=== PATIENT | male | born 1995 | race Asian ===

== ENCOUNTER 2016-12-20 20:32 | Observation (INO) | payer OTHER ==
[~2016-12-20] VITALS: Ht 170.2 cm; Wt 25.5 kg
[2016-12-20] MEDS ORDERED: IBUP-1050 PO (20:47)
[2016-12-20] MEDS ORDERED: KETOROLAC TROMETHAMINE 30 MG/ML VIAL IV STA (20:50)
[2016-12-20] MEDS ORDERED: SODIUM CHLORIDE 0.9% 1000ML 1,000 ML IV STA (20:50)
[2016-12-20] MEDS ORDERED: ONDANSETRON INJ 2 MG/ML 2 ML VIAL IV STA (20:50)
--- NOTE | 2016-12-20 20:55 | EMERGENCY ROOM VISIT NOTE ---
History Report prepared by Dima: Luigi Blair Under the Supervision of: Dr. Oumar Wellington D.O. First contact with patient: 20:38 Chief Complaint: FEVER Stated Complaint: FEVER, NAUSEA History of Present Illness The patient is a 21 year old male who presents to the Emergency Room with complaints of a persistent fever that began Monday, four days prior to arrival. The patient states that he also developed a headache on Monday, which he is still experiencing. He also claims that he possibly ate some "bad" food on Monday and is now nauseous. He has not vomited, and his abdominal pain has resolved form Monday. He has a runny nose. The patient did take Ibuprofen at 0700 this morning. He denies any pain/stiffness in his neck. Source of History: patient Onset: Four days [employer] Position: other (Global) Quality: other (Fever) Timing: other (Persistent) Associated Symptoms: + headache, + nausea, No neck pain, No vomiting Review of Systems See HPI for pertinent positives & negatives. A total of 10 systems reviewed and were otherwise negative. Past Medical & Surgical Medical Problems: (1) Diarrhea (2) Leukocytosis Patient notes no past medical/surgical histories. Family History Cancer Diabetes mellitus Social History Smoking Status: Never Smoker Marital Status: single Housing Status: lives with roommate Occupation Status: [employer] student Current/Historical Medications Scheduled PRN Ibuprofen (Advil), 400 MG PO Q8 PRN for Pain Allergies Coded Allergies: Shellfish (Verified Allergy, Mild, ITCHING, 12/21/16) Physical Exam Vital Signs Date Time Temp Pulse Resp B/P Pulse Ox O2 Delivery O2 Flow Rate FiO2 12/21/16 02:46 68 18 98/49 96 Room Air 12/21/16 01:00 74 12/21/16 00:55 36.7 80 18 126/70 98 Room Air 12/20/16 23:19 63 18 116/62 98 Room Air 12/20/16 22:33 80 20 116/62 97 Room Air 12/20/16 21:08 84 12/20/16 20:34 36.9 86 18 136/85 96 Room Air Physical Exam GENERAL: Patient is awake, alert, and in no acute distress. Patient is resting comfortably and showing no signs of anxiety EYES: The conjunctivae are clear. The pupils are round and reactive. EARS, NOSE, MOUTH AND THROAT: The nose is without any evidence of any deformity. Mucous membranes are moist tongue is midline NECK: The neck is nontender and supple. RESPIRATORY: Normal respiratory effort is noted there is no evidence of wheezing rhonchi or rales CARDIOVASCULAR: Tachycardiac rate with normal rhythm noted there no murmurs rubs or gallops normal S1 normal S2 GASTROINTESTINAL: The abdomen is soft. Bowel sounds are present in all quadrants. Abdomen is nontender MUSCULOSKELETAL/EXTREMITIES: There is no evidence of gross deformity full range of motion is noted in the hips and shoulders SKIN: There is no obvious evidence of any rash. There are no petechiae, pallor or cyanosis noted. NEUROLOGIC: Patient is awake alert and oriented x3 strength is symmetric patellar reflexes are 2+ bilaterally Medical Decision & Procedures ER Provider Diagnostic Interpretation: X ray results and stated below per my interpretation and radiology interpretation. Other radiology results per my review and radiologist interpretation: PA CHEST RADIOGRAPH AND UPRIGHT AND SUPINE AP RADIOGRAPHS OF THE ABDOMEN CLINICAL HISTORY: Abdominal pain and fever. COMPARISON STUDY: No previous studies for comparison. FINDINGS: Lung volumes are normal. The lungs are clear. There is no pneumothorax or pleural effusion. Cardiac size is normal. Mediastinal contours are normal. There is no free air. Bowel gas pattern is normal. No calcifications are identified within the abdomen or the pelvis. IMPRESSION: 1. No free air or evidence of bowel obstruction. 2. No acute cardiopulmonary findings. Electronically signed by: Uche Chandler M.D. 12/20/2016 10:25 PM Dictated Date/Time: 12/20/2016 10:[address] the abdomen and pelvis was obtained in the emergency department. The report is reviewed. Preliminary Findings Only See Final Report For Complete Findings CT ABDOMEN & PELVIS: The liver, gallbladder, spleen, pancreas, and adrenal glands are unremarkable. Both kidneys are similar in size and enhancement. There is no hydronephrosis. Urinary bladder and prostate are unremarkable. Aorta and IVC are normal. There is no evidence of bowel obstruction. Oral contrast has reached the mid small bowel at the time of imaging. Visualized appendix is normal. There is no free fluid or free air in the abdomen or pelvis. There are no acute osseous findings. Radiologist: Kaylynn Hui M.D. Study ready at 00:52 and initial results transmitted at 01:11 Laboratory Results Test 12/20/16 21:15 12/20/16 22:35 12/20/16 22:50 12/21/16 02:00 Toxic Vacuolation OCCASIONAL Direct Bilirubin 0.1 mg/dl (0-0.2) Lipase 175 U/L (73-393) Influenza Type A Antigen Neg for Influ A (NEG) Influenza Type B Antigen Neg for Influ B (NEG) Bedside Lactic Acid Venous 1.41 mmol/L (0.90-1.70) Urine Color YELLOW Urine Appearance CLEAR (CLEAR) Urine pH 7.0 (4.5-7.5) Urine Specific [place] 1.000 (1.000-1.030) Urine Protein NEG (NEG) Urine Glucose (UA) NEG (NEG) Urine Ketones NEG (NEG) Urine Occult Blood NEG (NEG) Urine Nitrite NEG (NEG) Urine Bilirubin NEG (NEG) Urine Urobilinogen NEG (NEG) Urine Leukocyte Esterase NEG (NEG) Platelet Estimate NORMAL Red Blood Cell Morphology Unremarkable Laboratory results per my review. Medications Administered Medications (Trade) Dose Ordered Sig/Pravin Route Start Time Stop Time Status Last Admin Dose Admin Ketorolac Tromethamine 30 mg 30 mg NOW STAT IV 12/20/16 20:50 12/20/16 20:51 DC 12/20/16 20:50 30 MG Sodium Chloride (Nss 1000ml) 1,000 ml @ 999 mls/hr Q1H1M STAT IV 12/20/16 20:50 12/20/16 21:50 DC 12/20/16 20:50 999 MLS/HR Ondansetron HCl 4 mg 4 mg NOW STAT IV 12/20/16 20:50 12/20/16 20:51 DC 12/20/16 20:50 4 MG Sodium Chloride 1,000 ml @ 999 mls/hr Q1H1M STAT IV 12/21/16 01:26 12/21/16 02:26 DC 12/21/16 01:38 999 MLS/HR Sodium Chloride (Nss 1000ml) 1,000 ml @ 200 mls/hr Q5H STAT IV 12/21/16 01:26 12/21/16 05:34 DC 12/21/16 01:26 200 MLS/HR Acetaminophen (Tylenol Tab) 650 mg Q4H PRN PO 12/21/16 03:45 12/22/16 16:52 DC 12/21/16 19:57 650 MG ED Course 2045: The patient was evaluated in room B5. A complete history and physical examination were performed. 2049: Ordered Zofran 4 mg IV, Sodium Chloride 1000 mL @ 999 mL/hr IV, Toradol 30 mg IV. 2214: I checked on the patient at this time. He was still filling nauseous. 0126: Ordered Sodium Chloride 1000 mL @ 200 mL/hr IV, Sodium Chloride 1000 mL @ 999 mL/hr IV. 0157: I discussed the case with Dr. Heri SNIDER Hospitalist, he asked me to repeat the CBC to check for error in the WBC results. 0310: I discussed the case with Dr. Liriano after a repeat WBC count. He will now evaluate the patient for further treatment. Medical Decision The patient's history was concerning for fever. Differential diagnosis: Etiologies such as viral syndrome, otitis, pharyngitis, pneumonia, influenza, meningitis, urinary tract infection, sepsis, bacteremia, as well as others were entertained. Nursing notes reviewed. The patient is a 21-year-old male who presented to the emergency department for an evaluation of an acute febrile illness. The patient had a fever and muscle aches. The patient also had GI symptoms of nausea vomiting and diarrhea. She was treated with IV fluids IV pain medicine IV antiemetics. She was found have a significantly elevated white blood cell count. For this reason blood cultures were obtained. I discussed the patient's laboratory and radiographic studies with her. Because of the elevated white blood cell count I also discussed his case with the on-call [facility] hospitalist group. They have agreed to evaluate the patient in the emergency department for further management and disposition. Consults Time Called: [phone] Consulting Physician: Dr. Heri SNIDER Hospitalist Returned Call: [phone] I discussed the case with Dr. Heri SNIDER Hospitalist, he asked me to repeat the CBC to check for error in the WBC results. Additional Consults: Time Called: [phone] Consulted Physician: Dr. Liriano Returned Call: [phone] Additional Comments: I discussed the case with Dr. Liriano after a repeat WBC count. He will now evaluate the patient for further treatment. Impression Primary Impression: Elevated WBC count Additional Impression: Nausea vomiting and diarrhea Scribe Attestation The scribe's documentation has been prepared under my direction and personally reviewed by me in its entirety. I confirm that the note above accurately reflects all work, treatment, procedures, and medical decision making performed by me. Departure Information Dispostion Being Evaluated By Hospitalist Referrals [facility] (PCP) Patient Instructions My [facility] Problem Qualifiers
[2016-12-20 21:50] LABS: HEMATOCRIT 40.6 % (42-52); MEAN CELL VOLUME 90.8 fL (80-100); MEAN CORPUSCULAR HEMOGLOBIN 31.8 pg (25-34); MEAN PLATELET VOLUME 9.5 fL (7.4-10.4); PLATELET COUNT 222 K/uL (130-400); RED BLOOD COUNT 4.47 M/uL (4.7-6.1); WHITE BLOOD COUNT 37.59 K/uL (4.8-10.8)
[2016-12-20 21:55] LABS: BUN/CREATININE RATIO 12.2 (10-20); CALCIUM 8.7 mg/dl (8.5-10.1); CREATININE 1.2 mg/dl (0.60-1.40); POTASSIUM 3.7 mmol/L (3.5-5.1)
--- NOTE | 2016-12-20 22:27 | DIAGNOSTIC IMAGING REPORT ---
PA CHEST RADIOGRAPH AND UPRIGHT AND SUPINE AP RADIOGRAPHS OF THE ABDOMEN CLINICAL HISTORY: Abdominal pain and fever. COMPARISON STUDY: No previous studies for comparison. FINDINGS: Lung volumes are normal. The lungs are clear. There is no pneumothorax or pleural effusion. Cardiac size is normal. Mediastinal contours are normal. There is no free air. Bowel gas pattern is normal. No calcifications are identified within the abdomen or the pelvis. IMPRESSION: 1. No free air or evidence of bowel obstruction. 2. No acute cardiopulmonary findings. Electronically signed by: Uche Chandler M.D. 12/20/2016 10:25 PM Dictated Date/Time: 12/20/2016 10:24 PM
[2016-12-20] MEDS ORDERED: OPTIRAY 320 IV PRN (22:30)
[2016-12-20 22:39] LABS: BASO % 0.2 %; BASO ABS # 0.09 K/uL (0-0.2); COMPLETE YES; EOS % 2.4 %; IG% 0.6 %; LYMPH % 5.6 %; MONO % 3.3 %; NEUT % 87.9 %; VACUOLIZATION OCCASIONAL
[2016-12-20 23:06] LABS: URINE APPEARANCE CLEAR (CLEAR); URINE BILIRUBIN NEG (NEG); URINE COLOR YELLOW; URINE NITRITE NEG (NEG); UROBILINOGEN NEG (NEG)
[2016-12-20 23:26] LABS: MANUAL MICROSCOPIC REQUIRED? NO; REVIEW REQ? NO
[2016-12-21] MEDS ORDERED: SODIUM CHLORIDE 0.9% 1000ML 1,000 ML IV STA ×2 (01:26)
[2016-12-21 02:49] LABS: HEMATOCRIT 38.4 % (42-52); MEAN CELL VOLUME 90.1 fL (80-100); MEAN CORPUSCULAR HEMOGLOBIN 31.2 pg (25-34); MEAN CORPUSCULAR HGB CONC 34.6 g/dl (32-36); MEAN PLATELET VOLUME 9.1 fL (7.4-10.4); PLATELET COUNT 188 K/uL (130-400); RED BLOOD COUNT 4.26 M/uL (4.7-6.1); WHITE BLOOD COUNT 31.48 K/uL (4.8-10.8)
[2016-12-21 02:50] LABS: BASO % 0.2 %; BASO ABS # 0.05 K/uL (0-0.2); COMPLETE YES; EOS % 2.9 %; IG% 0.4 %; LYMPH % 8.2 %; LYMPH ABS # 2.59 K/uL (1.2-3.4); MONO % 4.4 %; NEUT % 83.9 %; PLT ESTIMATE NORMAL
[2016-12-21] MEDS ORDERED: POLYETHYLENE (MIRALAX) 17 GM PACK PO PRN (03:45)
[2016-12-21] MEDS ORDERED: ALUMINUM/MAGNESIUM/SIMETH (MAALOX MAX) 30 ML UDC PO PRN (03:45)
[2016-12-21] MEDS ORDERED: MAGNESIUM HYDROXIDE SUSP 30 ML UDC PO PRN (03:45)
[2016-12-21] MEDS ORDERED: ACETAMINOPHEN 325 MG TAB PO PRN (03:45)
[2016-12-21] MEDS ORDERED: ONDANSETRON INJ 2 MG/ML 2 ML VIAL IV PRN (03:45)
--- NOTE | 2016-12-21 04:10 | History and Physical ---
History & Physical Date & Time of Service: Dec 21, 2016 at 04:06 Chief Complaint: Fever, Nausea Primary Care Physician: [facility] History of Present Illness Source: patient Juan Francisco Funez is a 21 year old [place] male, [facility] [employer] [facility] [employer] Moo, who presents with night sweats, fevers, and found to have a leukocytosis. He reports starting last Monday (1 week ago) he noticed he had night sweats and was having difficulty sleeping. He reports since then his appetite has been lower and he can't finish his meals. Since Monday (4 days ago) he started to break out in a sweat but did not measure his temperature. He noticed diarrhea earlier yesterday which concerned him. He reports he had a headache since Monday as well. He reports he may have eaten bad food over the weekend. He was found to have a leukocytosis of 30. He had a negative CXR and CT abdomen pelvis. Repeat CBC also had an elevated WBCC. His nausea has improved. Past Medical/Surgical History No PMHx or PSHx Family History Cancer Diabetes mellitus Social History He studies Chemistry. His last trip to [place] was 2 years ago. He has lived in the 5-6 years. His last travel was to [place] in the last 2 months where he stayed in a resort. He is sexually active with females but has not been in the last month. He reports he always uses condoms for protection. He has never had STD screening. Smoking Status: Never Smoker Alcohol Use: socially Marital Status: single Occupational Status: [employer] student Allergies Coded Allergies: No Known Allergies (Unverified , 12/20/16) Home Medications Scheduled PRN Ibuprofen (Advil), 400 MG PO Q8 PRN for Pain Review of Systems See HPI for pertinent positives & negatives. A total of 10 systems reviewed and were otherwise negative. Constitutional: + problem reported Physical Exam Vital Signs Date Time Temp Pulse Resp B/P Pulse Ox O2 Delivery O2 Flow Rate FiO2 12/21/16 02:46 68 18 98/49 96 Room Air 12/21/16 01:00 74 12/21/16 00:55 36.7 80 18 126/70 98 Room Air 12/20/16 23:19 63 18 116/62 98 Room Air 12/20/16 22:33 80 20 116/62 97 Room Air 12/20/16 21:08 84 12/20/16 20:34 36.9 86 18 136/85 96 Room Air General Appearance: WD/WN, no apparent distress Head: normocephalic, atraumatic Eyes: normal inspection ENT: hearing grossly normal Neck: supple, no adenopathy, no JVD Respiratory/Chest: lungs clear, normal breath sounds, no respiratory distress, no accessory muscle use Cardiovascular: regular rate, rhythm, no murmur Abdomen/GI: normal bowel sounds, non tender, soft Back: no CVA tenderness, no muscle spasm Neurologic/Psych: alert, normal mood/affect, oriented x 3 Skin: no rash Diagnostics Laboratory Results Results Past 24 Hours Test 12/20/16 21:15 12/20/16 22:35 12/20/16 22:50 12/21/16 02:00 Range/Units White Blood Count 37.59 31.48 4.8-10.8 K/uL Red Blood Count 4.47 4.26 4.7-6.1 M/uL Hemoglobin 14.2 13.3 14.0-18.0 g/dL Hematocrit 40.6 38.4 42-52 % Mean Corpuscular Volume 90.8 90.1 80-100 fL Mean Corpuscular Hemoglobin 31.8 31.2 25-34 pg Mean Corpuscular Hemoglobin Concent 35.0 34.6 32-36 g/dl Platelet Count 222 188 130-400 K/uL Mean Platelet Volume 9.5 9.1 7.4-10.4 fL Neutrophils (%) (Auto) 87.9 83.9 % Lymphocytes (%) (Auto) 5.6 8.2 % Monocytes (%) (Auto) 3.3 4.4 % Eosinophils (%) (Auto) 2.4 2.9 % Basophils (%) (Auto) 0.2 0.2 % Neutrophils # (Auto) 33.03 26.39 1.4-6.5 K/uL Lymphocytes # (Auto) 2.10 2.59 1.2-3.4 K/uL Monocytes # (Auto) 1.25 1.39 0.11-0.59 K/uL Eosinophils # (Auto) 0.90 0.92 0-0.5 K/uL Basophils # (Auto) 0.09 0.05 0-0.2 K/uL RDW Standard Deviation 44.5 44.0 36.4-46.3 fL RDW Coefficient of Variation 13.4 13.5 11.5-14.5 % Immature Granulocyte % (Auto) 0.6 0.4 % Immature Granulocyte # (Auto) 0.22 0.14 0.00-0.02 K/uL Toxic Vacuolation OCCASIONAL Red Blood Cell Morphology Unremarkable Unremarkable Sodium Level 139 136-145 mmol/L Potassium Level 3.7 3.5-5.1 mmol/L Chloride Level 101 98-107 mmol/L Carbon Dioxide Level 28 21-32 mmol/L Anion Gap 10.0 3-11 mmol/L Blood Urea Nitrogen 15 7-18 mg/dl Creatinine 1.20 0.60-1.40 mg/dl Est Creatinine Clear Calc Drug Dose 90.3 ml/min Estimated GFR () 98.9 Estimated GFR (Non- 85.3 BUN/Creatinine Ratio 12.2 10-20 Random Glucose 96 70-99 mg/dl Calcium Level 8.7 8.5-10.1 mg/dl Total Bilirubin 0.3 0.2-1 mg/dl Direct Bilirubin 0.1 0-0.2 mg/dl Aspartate Amino Transf (AST/SGOT) 13 15-37 U/L Alanine Aminotransferase (ALT/SGPT) 15 12-78 U/L Alkaline Phosphatase 131 45-117 U/L Total Protein 7.4 6.4-8.2 gm/dl Albumin 3.7 3.4-5.0 gm/dl Lipase 175 73-393 U/L Influenza Type A Antigen Neg for Influ A NEG Influenza Type B Antigen Neg for Influ B NEG Bedside Lactic Acid Venous 1.41 0.90-1.70 mmol/L Urine Color YELLOW Urine Appearance CLEAR CLEAR Urine pH 7.0 4.5-7.5 Urine Specific [place] 1.000 1.000-1.030 Urine Protein NEG NEG Urine Glucose (UA) NEG NEG Urine Ketones NEG NEG Urine Occult Blood NEG NEG Urine Nitrite NEG NEG Urine Bilirubin NEG NEG Urine Urobilinogen NEG NEG Urine Leukocyte Esterase NEG NEG Platelet Estimate NORMAL Microbiology Results 12/20/16 Blood Culture, Received Pending 12/20/16 Blood Culture, Received Pending Diagnostic Radiology PA CHEST RADIOGRAPH AND UPRIGHT AND SUPINE AP RADIOGRAPHS OF THE ABDOMEN CLINICAL HISTORY: Abdominal pain and fever. COMPARISON STUDY: No previous studies for comparison. FINDINGS: Lung volumes are normal. The lungs are clear. There is no pneumothorax or pleural effusion. Cardiac size is normal. Mediastinal contours are normal. There is no free air. Bowel gas pattern is normal. No calcifications are identified within the abdomen or the pelvis. IMPRESSION: 1. No free air or evidence of bowel obstruction. 2. No acute cardiopulmonary findings. Electronically signed by: Uche Chandler M.D. 12/20/2016 10:25 PM Dictated Date/Time: 12/20/2016 10:[address] the abdomen and pelvis was obtained in the emergency department. The report is reviewed. Preliminary Findings Only See Final Report For Complete Findings CT ABDOMEN & PELVIS: The liver, gallbladder, spleen, pancreas, and adrenal glands are unremarkable. Both kidneys are similar in size and enhancement. There is no hydronephrosis. Urinary bladder and prostate are unremarkable. Aorta and IVC are normal. There is no evidence of bowel obstruction. Oral contrast has reached the mid small bowel at the time of imaging. Visualized appendix is normal. There is no free fluid or free air in the abdomen or pelvis. There are no acute osseous findings. Impression Assessment and Plan 21 year old male with fever, night sweats, and diarrhea, found to have leukocytosis with normal other labs / imaging. Differential broad but most likely a viral infection, though would also consider if this were pneumonia, HIV , lymphoma, influenza. Plan - Observation to Med/Surg - IV fluids - Zofran - Repeat labs, pt consents to HIV test Level of Care Med/Surg Resuscitation Status FULL RESUSCITATION VTE Prophylaxis VTE Risk Assessment Done? Y/N: Yes Risk Level: Low Resident Tracking Resident Involvement: Resident Care Provided Care Provided: Adult [facility] Medicine Assessment and Plan Attending Addendum: I have seen and examined this patient, have directed their medical care, have supervised the medical residents, and agree with the H&P as noted above. History of Present Illness: The patient is a 21-year-old male who presents to the emergency department with symptoms of sweats, fevers, nausea, vomiting and loose stools, and found to have a significant leukocytosis on laboratory studies. He reports he began to develop decreased appetite, night sweats, and difficulty sleeping about one week ago. He thinks that he may have eaten some bad food during this time interval as well. In the emergency department tonight, he reports he still feels nauseous. He has not had any recent travel, and is not sure if he has had any sick exposures. Review of Systems: The patient denies chest pain, palpitations, shortness of breath, cough, lower extremity swelling, vision change, hearing change, sore throat, weight change, pelvic pain, blood in urine or stool, dysuria, urinary frequency or urgency, lightheadedness, dizziness, headache, memory loss, rash, abnormal bruising or bleeding, imbalance, focal weakness, numbness or tingling in arms or legs, arthralgias or myalgias, back or neck pain, or allergy symptoms. The review of systems is otherwise negative other than for that already noted above, and at least 10 systems have been reviewed. Physical Exam: The patient is awake, well-developed and adequately nourished, alert and oriented 3, normocephalic and atraumatic, lying in bed and in no acute distress. HEENT--PERRL, EOMI, mucous membranes and oropharynx dry. Neck--supple, no JVD or bruits, thyroid normal, trachea midline, no adenopathy. Heart--normal S1 and S2, no extra beats, no murmurs, rubs or gallops. Lungs--clear bilaterally with good air movement, no respiratory distress, no accessory muscle use. Abdomen--normal bowel sounds and soft, nontender and nondistended, no hernias or masses, no organomegaly. Extremities--no cyanosis, clubbing or edema. There are good distal pulses b/l. Dermatologic--normal skin turgor, normal color, warm and dry, no abnormal lymph nodes, no rash. Neurologic--cranial nerves II through XII grossly intact, motor and sensory examination normal. Rheumatologic--normal range of motion, nontender, muscles and joints. Psychiatric--normal affect. Assessment and Plan: Neutrophilic leukocytosis, with otherwise laboratories, normal imaging studies of chest x-ray and abdominal x-ray, and CT scan of the abdomen and pelvis. The patient has symptoms of nausea, vomiting, diarrhea, fevers, chills which are more suggestive of a viral etiology or possibly food poisoning. We'll follow stool culture results, and primarily provide supportive treatment with IV fluids , IV Zofran and IV Protonix.
[2016-12-21 05:15] VITALS: O2SAT 98
[2016-12-21] MEDS ORDERED: IV FLUIDS COMPLETED PRN (05:15)
[2016-12-21 05:50] VITALS: BP 106/69; PULSE 76; TEMP 36.8; O2SAT 97
[2016-12-21] MEDS: SODIUM CHLOR 0.45% + 20MEQ KCL 1,000 ML IV SCH ×3 (05:57→21:38)
[2016-12-21 06:31] VITALS: BP 106/69; PULSE 76; TEMP 36.8; Ht 170.2 cm; Wt 25.5 kg
[2016-12-21 07:03] VITALS: BP 96/62; PULSE 61; TEMP 36.2; O2SAT 93
[2016-12-21 08:08] LABS: BASO % 0.3 %; BASO ABS # 0.06 K/uL (0-0.2); COMPLETE YES; EOS % 2.9 %; HEMATOCRIT 40.1 % (42-52); IG% 0.4 %; LYMPH % 8.8 %; LYMPH ABS # 2.09 K/uL (1.2-3.4); MEAN CELL VOLUME 91.1 fL (80-100); MEAN CORPUSCULAR HEMOGLOBIN 31.6 pg (25-34); MEAN CORPUSCULAR HGB CONC 34.7 g/dl (32-36); MONO % 4.9 %; NEUT % 82.7 %; PLATELET COUNT 194 K/uL (130-400); WHITE BLOOD COUNT 23.67 K/uL (4.8-10.8)
--- NOTE | 2016-12-21 08:08 | DIAGNOSTIC IMAGING REPORT ---
ABDOMEN AND PELVIS CT WITH IV AND ORAL CONTRAST CT DOSE: 518.89 mGycm HISTORY: vomiting and high WBC TECHNIQUE: Multiaxial CT images of the abdomen and pelvis were performed following the use of intravenous and oral contrast. COMPARISON STUDY: None. FINDINGS: The lung bases are clear. The liver, spleen, gallbladder, pancreas, kidneys, and adrenal glands are within normal limits. No bowel wall thickening or obstruction. The pelvic organs are unremarkable. No suspicious lytic or blastic osseous lesions. The visualized appendix is normal. No retroperitoneal lymphadenopathy. A few prominent mesenteric lymph nodes which measure up to 8 mm in short axis diameter. IMPRESSION: 1. No bowel wall thickening or obstruction. 2. The visualized appendix is unremarkable. 3. No renal stones or hydronephrosis. 4. A few prominent mesenteric lymph nodes. These may be reactive. Electronically signed by: Sammy Edward M.D. 12/21/2016 8:06 AM Dictated Date/Time: 12/21/2016 8:00 AM
[2016-12-21 08:09] LABS: HEMATOCRIT 41.2 % (42-52); MEAN CELL VOLUME 91.4 fL (80-100); MEAN PLATELET VOLUME 9.3 fL (7.4-10.4); PLATELET COUNT 197 K/uL (130-400); RED BLOOD COUNT 4.51 M/uL (4.7-6.1); WHITE BLOOD COUNT 23.83 K/uL (4.8-10.8)
--- NOTE | 2016-12-21 08:14 | Medical Student: [facility] ---
Med Student Progress Note Date of Service Dec 21, 2016. Objective Vital Signs Date Time Temp Pulse Resp B/P Pulse Ox O2 Delivery O2 Flow Rate FiO2 12/21/16 07:03 36.2 61 14 96/62 93 Room Air 12/21/16 06:31 36.8 76 16 106/69 Room Air 12/21/16 05:50 36.8 76 16 106/69 97 Room Air 12/21/16 05:15 84 18 110/53 98 Room Air 12/21/16 02:46 68 18 98/49 96 Room Air 12/21/16 01:00 74 12/21/16 00:55 36.7 80 18 126/70 98 Room Air 12/20/16 23:19 63 18 116/62 98 Room Air 12/20/16 22:33 80 20 116/62 97 Room Air 12/20/16 21:08 84 12/20/16 20:34 36.9 86 18 136/85 96 Room Air Laboratory Results Last 24 Hours Test 12/20/16 21:15 12/20/16 22:35 12/20/16 22:50 12/21/16 02:00 White Blood Count 37.59 K/uL 31.48 K/uL Red Blood Count 4.47 M/uL 4.26 M/uL Hemoglobin 14.2 g/dL 13.3 g/dL Hematocrit 40.6 % 38.4 % Mean Corpuscular Volume 90.8 fL 90.1 fL Mean Corpuscular Hemoglobin 31.8 pg 31.2 pg Mean Corpuscular Hemoglobin Concent 35.0 g/dl 34.6 g/dl Platelet Count 222 K/uL 188 K/uL Mean Platelet Volume 9.5 fL 9.1 fL Neutrophils (%) (Auto) 87.9 % 83.9 % Lymphocytes (%) (Auto) 5.6 % 8.2 % Monocytes (%) (Auto) 3.3 % 4.4 % Eosinophils (%) (Auto) 2.4 % 2.9 % Basophils (%) (Auto) 0.2 % 0.2 % Neutrophils # (Auto) 33.03 K/uL 26.39 K/uL Lymphocytes # (Auto) 2.10 K/uL 2.59 K/uL Monocytes # (Auto) 1.25 K/uL 1.39 K/uL Eosinophils # (Auto) 0.90 K/uL 0.92 K/uL Basophils # (Auto) 0.09 K/uL 0.05 K/uL RDW Standard Deviation 44.5 fL 44.0 fL RDW Coefficient of Variation 13.4 % 13.5 % Immature Granulocyte % (Auto) 0.6 % 0.4 % Immature Granulocyte # (Auto) 0.22 K/uL 0.14 K/uL Toxic Vacuolation OCCASIONAL Red Blood Cell Morphology Unremarkable Unremarkable Sodium Level 139 mmol/L Potassium Level 3.7 mmol/L Chloride Level 101 mmol/L Carbon Dioxide Level 28 mmol/L Anion Gap 10.0 mmol/L Blood Urea Nitrogen 15 mg/dl Creatinine 1.20 mg/dl Est Creatinine Clear Calc Drug Dose 90.3 ml/min Estimated GFR () 98.9 Estimated GFR (Non- 85.3 BUN/Creatinine Ratio 12.2 Random Glucose 96 mg/dl Calcium Level 8.7 mg/dl Total Bilirubin 0.3 mg/dl Direct Bilirubin 0.1 mg/dl Aspartate Amino Transf (AST/SGOT) 13 U/L Alanine Aminotransferase (ALT/SGPT) 15 U/L Alkaline Phosphatase 131 U/L Total Protein 7.4 gm/dl Albumin 3.7 gm/dl Lipase 175 U/L Influenza Type A Antigen Neg for Influ A Influenza Type B Antigen Neg for Influ B Bedside Lactic Acid Venous 1.41 mmol/L Urine Color YELLOW Urine Appearance CLEAR Urine pH 7.0 Urine Specific [place] 1.000 Urine Protein NEG Urine Glucose (UA) NEG Urine Ketones NEG Urine Occult Blood NEG Urine Nitrite NEG Urine Bilirubin NEG Urine Urobilinogen NEG Urine Leukocyte Esterase NEG Platelet Estimate NORMAL Test 12/21/16 07:54 White Blood Count 23.83 K/uL Red Blood Count 4.40 M/uL Hemoglobin 13.9 g/dL Hematocrit 40.1 % Mean Corpuscular Volume 91.1 fL Mean Corpuscular Hemoglobin 31.6 pg Mean Corpuscular Hemoglobin Concent 34.7 g/dl Platelet Count 194 K/uL Mean Platelet Volume 9.0 fL Neutrophils (%) (Auto) 82.7 % Lymphocytes (%) (Auto) 8.8 % Monocytes (%) (Auto) 4.9 % Eosinophils (%) (Auto) 2.9 % Basophils (%) (Auto) 0.3 % Neutrophils # (Auto) 19.60 K/uL Lymphocytes # (Auto) 2.09 K/uL Monocytes # (Auto) 1.15 K/uL Eosinophils # (Auto) 0.68 K/uL Basophils # (Auto) 0.06 K/uL RDW Standard Deviation 44.7 fL RDW Coefficient of Variation 13.5 % Immature Granulocyte % (Auto) 0.4 % Immature Granulocyte # (Auto) 0.09 K/uL PA CHEST RADIOGRAPH AND UPRIGHT AND SUPINE AP RADIOGRAPHS OF THE ABDOMEN CLINICAL HISTORY: Abdominal pain and fever. COMPARISON STUDY: No previous studies for comparison. FINDINGS: Lung volumes are normal. The lungs are clear. There is no pneumothorax or pleural effusion. Cardiac size is normal. Mediastinal contours are normal. There is no free air. Bowel gas pattern is normal. No calcifications are identified within the abdomen or the pelvis. IMPRESSION: 1. No free air or evidence of bowel obstruction. 2. No acute cardiopulmonary findings. ABDOMEN AND PELVIS CT WITH IV AND ORAL CONTRAST CT DOSE: 518.89 mGycm HISTORY: vomiting and high WBC TECHNIQUE: Multiaxial CT images of the abdomen and pelvis were performed following the use of intravenous and oral contrast. COMPARISON STUDY: None. FINDINGS: The lung bases are clear. The liver, spleen, gallbladder, pancreas, kidneys, and adrenal glands are within normal limits. No bowel wall thickening or obstruction. The pelvic organs are unremarkable. No suspicious lytic or blastic osseous lesions. The visualized appendix is normal. No retroperitoneal lymphadenopathy. A few prominent mesenteric lymph nodes which measure up to 8 mm in short axis diameter. IMPRESSION: 1. No bowel wall thickening or obstruction. 2. The visualized appendix is unremarkable. 3. No renal stones or hydronephrosis. 4. A few prominent mesenteric lymph nodes. These may be reactive. Medications Medications Administered Medications (Trade) Dose Ordered Sig/Pravin Route Start Time Stop Time Status Last Admin Dose Admin Ketorolac Tromethamine 30 mg 30 mg NOW STAT IV 12/20/16 20:50 12/20/16 20:51 DC 12/20/16 20:50 30 MG Sodium Chloride (Nss 1000ml) 1,000 ml @ 999 mls/hr Q1H1M STAT IV 12/20/16 20:50 12/20/16 21:50 DC 12/20/16 20:50 999 MLS/HR Ondansetron HCl 4 mg 4 mg NOW STAT IV 12/20/16 20:50 12/20/16 20:51 DC 12/20/16 20:50 4 MG Sodium Chloride 1,000 ml @ 999 mls/hr Q1H1M STAT IV 12/21/16 01:26 12/21/16 02:26 DC 12/21/16 01:38 999 MLS/HR Sodium Chloride 1,000 ml @ 200 mls/hr Q5H STAT IV 12/21/16 01:26 12/21/16 05:34 DC 12/21/16 01:26 200 MLS/HR Potassium Chloride/Sodium Chloride (1/2 Nss + 20meq KCl 1000ml) 1,000 ml @ 125 mls/hr Q8H IV 12/21/16 06:00 01/20/17 05:59 12/21/16 05:57 125 MLS/HR
[2016-12-21 08:44] LABS: BUN/CREATININE RATIO 11.8 (10-20); CALCIUM 7.9 mg/dl (8.5-10.1)
[2016-12-21] MEDS: PANTOprazole INJ 40 MG in SYRINGE 0 ML IV SCH ×2 (09:58→19:57)
--- NOTE | 2016-12-21 15:48 | Family Medicine Progress Note ---
Progress Note Date of Service Dec 21, 2016. 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 He also states that prior to the nausea and abdominal discomfort he had chipotle that morning Constitutional: No fever Eyes: No worsening of vision ENT: No hearing loss Respiratory: No cough, No dyspnea on exertion, No shortness of breath, No sputum, No wheezing Cardiovascular: No chest pain Abdomen: + diarrhea, No constipation, No nausea, No pain, No vomiting Musculoskeletal: No joint pain, No muscle pain Male : No dysuria Neurologic: No balance problems, No numbness/tingling, No weakness Psychiatric: No depression symptoms Endo: No fatigue Skin: No rash Medications Medications Administered Medications (Trade) Dose Ordered Sig/Pravin Route Start Time Stop Time Status Last Admin Dose Admin Ketorolac Tromethamine 30 mg 30 mg NOW STAT IV 12/20/16 20:50 12/20/16 20:51 DC 12/20/16 20:50 30 MG Sodium Chloride (Nss 1000ml) 1,000 ml @ 999 mls/hr Q1H1M STAT IV 12/20/16 20:50 12/20/16 21:50 DC 12/20/16 20:50 999 MLS/HR Ondansetron HCl 4 mg 4 mg NOW STAT IV 12/20/16 20:50 12/20/16 20:51 DC 12/20/16 20:50 4 MG Sodium Chloride 1,000 ml @ 999 mls/hr Q1H1M STAT IV 12/21/16 01:26 12/21/16 02:26 DC 12/21/16 01:38 999 MLS/HR Sodium Chloride 1,000 ml @ 200 mls/hr Q5H STAT IV 12/21/16 01:26 12/21/16 05:34 DC 12/21/16 01:26 200 MLS/HR Potassium Chloride/Sodium Chloride 1,000 ml @ 125 mls/hr Q8H IV 12/21/16 06:00 01/20/17 05:59 12/21/16 13:45 125 MLS/HR Pantoprazole Sodium/Syringe (Protonix Inj/ Syringe) 10 ml @ 5 mls/min DAILY@09,21 IV 12/21/16 09:00 01/20/17 08:59 12/21/16 09:58 5 MLS/MIN Objective Vital Signs Date Time Temp Pulse Resp B/P Pulse Ox O2 Delivery O2 Flow Rate FiO2 12/21/16 08:59 Room Air 12/21/16 07:03 36.2 61 14 96/62 93 Room Air 12/21/16 06:31 36.8 76 16 106/69 Room Air 12/21/16 05:50 36.8 76 16 106/69 97 Room Air 12/21/16 05:15 84 18 110/53 98 Room Air 12/21/16 02:46 68 18 98/49 96 Room Air 12/21/16 01:00 74 12/21/16 00:55 36.7 80 18 126/70 98 Room Air 12/20/16 23:19 63 18 116/62 98 Room Air 12/20/16 22:33 80 20 116/62 97 Room Air 12/20/16 21:08 84 12/20/16 20:34 36.9 86 18 136/85 96 Room Air Physical Exam General Appearance: WD/WN, no apparent distress Eyes: normal inspection ENT: normal ENT inspection Neck: supple Respiratory/Chest: lungs clear, normal breath sounds, no respiratory distress, no accessory muscle use Cardiovascular: regular rate, rhythm, no murmur Abdomen: normal bowel sounds, non tender, soft Extremities: non-tender, normal inspection, no pedal edema, no calf tenderness Neurologic/Psychiatric: no motor/sensory deficits, alert, oriented x 3 Skin: normal color, warm/dry, no rash Lymphatic: no adenopathy Laboratory Results Results Past 24 Hours Test 12/20/16 21:15 12/20/16 22:35 12/20/16 22:50 12/21/16 02:00 Range/Units White Blood Count 37.59 31.48 4.8-10.8 K/uL Red Blood Count 4.47 4.26 4.7-6.1 M/uL Hemoglobin 14.2 13.3 14.0-18.0 g/dL Hematocrit 40.6 38.4 42-52 % Mean Corpuscular Volume 90.8 90.1 80-100 fL Mean Corpuscular Hemoglobin 31.8 31.2 25-34 pg Mean Corpuscular Hemoglobin Concent 35.0 34.6 32-36 g/dl Platelet Count 222 188 130-400 K/uL Mean Platelet Volume 9.5 9.1 7.4-10.4 fL Neutrophils (%) (Auto) 87.9 83.9 % Lymphocytes (%) (Auto) 5.6 8.2 % Monocytes (%) (Auto) 3.3 4.4 % Eosinophils (%) (Auto) 2.4 2.9 % Basophils (%) (Auto) 0.2 0.2 % Neutrophils # (Auto) 33.03 26.39 1.4-6.5 K/uL Lymphocytes # (Auto) 2.10 2.59 1.2-3.4 K/uL Monocytes # (Auto) 1.25 1.39 0.11-0.59 K/uL Eosinophils # (Auto) 0.90 0.92 0-0.5 K/uL Basophils # (Auto) 0.09 0.05 0-0.2 K/uL RDW Standard Deviation 44.5 44.0 36.4-46.3 fL RDW Coefficient of Variation 13.4 13.5 11.5-14.5 % Immature Granulocyte % (Auto) 0.6 0.4 % Immature Granulocyte # (Auto) 0.22 0.14 0.00-0.02 K/uL Toxic Vacuolation OCCASIONAL Red Blood Cell Morphology Unremarkable Unremarkable Sodium Level 139 136-145 mmol/L Potassium Level 3.7 3.5-5.1 mmol/L Chloride Level 101 98-107 mmol/L Carbon Dioxide Level 28 21-32 mmol/L Anion Gap 10.0 3-11 mmol/L Blood Urea Nitrogen 15 7-18 mg/dl Creatinine 1.20 0.60-1.40 mg/dl Est Creatinine Clear Calc Drug Dose 90.3 ml/min Estimated GFR () 98.9 Estimated GFR (Non- 85.3 BUN/Creatinine Ratio 12.2 10-20 Random Glucose 96 70-99 mg/dl Calcium Level 8.7 8.5-10.1 mg/dl Total Bilirubin 0.3 0.2-1 mg/dl Direct Bilirubin 0.1 0-0.2 mg/dl Aspartate Amino Transf (AST/SGOT) 13 15-37 U/L Alanine Aminotransferase (ALT/SGPT) 15 12-78 U/L Alkaline Phosphatase 131 45-117 U/L Total Protein 7.4 6.4-8.2 gm/dl Albumin 3.7 3.4-5.0 gm/dl Lipase 175 73-393 U/L Influenza Type A Antigen Neg for Influ A NEG Influenza Type B Antigen Neg for Influ B NEG Bedside Lactic Acid Venous 1.41 0.90-1.70 mmol/L Urine Color YELLOW Urine Appearance CLEAR CLEAR Urine pH 7.0 4.5-7.5 Urine Specific [place] 1.000 1.000-1.030 Urine Protein NEG NEG Urine Glucose (UA) NEG NEG Urine Ketones NEG NEG Urine Occult Blood NEG NEG Urine Nitrite NEG NEG Urine Bilirubin NEG NEG Urine Urobilinogen NEG NEG Urine Leukocyte Esterase NEG NEG Platelet Estimate NORMAL Test 12/21/16 07:54 Range/Units White Blood Count 23.83 4.8-10.8 K/uL Red Blood Count 4.40 4.7-6.1 M/uL Hemoglobin 13.9 14.0-18.0 g/dL Hematocrit 40.1 42-52 % Mean Corpuscular Volume 91.1 80-100 fL Mean Corpuscular Hemoglobin 31.6 25-34 pg Mean Corpuscular Hemoglobin Concent 34.7 32-36 g/dl Platelet Count 194 130-400 K/uL Mean Platelet Volume 9.0 7.4-10.4 fL Neutrophils (%) (Auto) 82.7 % Lymphocytes (%) (Auto) 8.8 % Monocytes (%) (Auto) 4.9 % Eosinophils (%) (Auto) 2.9 % Basophils (%) (Auto) 0.3 % Neutrophils # (Auto) 19.60 1.4-6.5 K/uL Lymphocytes # (Auto) 2.09 1.2-3.4 K/uL Monocytes # (Auto) 1.15 0.11-0.59 K/uL Eosinophils # (Auto) 0.68 0-0.5 K/uL Basophils # (Auto) 0.06 0-0.2 K/uL RDW Standard Deviation 44.7 36.4-46.3 fL RDW Coefficient of Variation 13.5 11.5-14.5 % Immature Granulocyte % (Auto) 0.4 % Immature Granulocyte # (Auto) 0.09 0.00-0.02 K/uL Peripheral Blood Smear Path Consult Erythrocyte Sedimentation Rate 22 0-14 mm/hr Sodium Level 141 136-145 mmol/L Potassium Level 4.0 3.5-5.1 mmol/L Chloride Level 107 98-107 mmol/L Carbon Dioxide Level 25 21-32 mmol/L Anion Gap 9.0 3-11 mmol/L Blood Urea Nitrogen 12 7-18 mg/dl Creatinine 1.00 0.60-1.40 mg/dl Est Creatinine Clear Calc Drug Dose 41.8 ml/min Estimated GFR () 123.3 Estimated GFR (Non- 106.4 BUN/Creatinine Ratio 11.8 10-20 Random Glucose 87 70-99 mg/dl Calcium Level 7.9 8.5-10.1 mg/dl Total Bilirubin 0.2 0.2-1 mg/dl Aspartate Amino Transf (AST/SGOT) 12 15-37 U/L Alanine Aminotransferase (ALT/SGPT) 15 12-78 U/L Alkaline Phosphatase 111 45-117 U/L Total Protein 6.3 6.4-8.2 gm/dl Albumin 3.1 3.4-5.0 gm/dl Globulin 3.2 2.5-4.0 gm/dl Albumin/Globulin Ratio 1.0 0.9-2 Microbiology Results 12/20/16 Blood Culture, Received Pending 12/20/16 Blood Culture, Received Pending 12/21/16 C.difficile Toxin B Gene (PCR), Received Pending Assessment and Plan This is a 21 yo m that presented to us with nausea and abdominal discomfort and a WBC > 30. He was thoroughly imaged without source of inflammation. His WBC is down trending and a peripheral smear was done to r/o parasitic infection vs leukemoid reaction or leukemia. Based on results most likely reactive. As the patient had improved symptoms we discussed d/c and he would prefer to stay overnight and have WBC level checked in am prior to d/c. Abdominal discomfort/ N&V most likely secondary Viral Gastroenteritis -NSS IVF - Zofran IV for nausea - advance diet as tolerated Leukemoid Reaction -recheck CBC in the am - C Diff because diarrhea and such a high WBC count - blood culture pending DVT Prophylaxis SCD FULL CODE Resident Physician Supervision Note: I interviewed and examined the patient. Discussed with Dr. Joshi and agree with findings and plan as documented in the note. Any exceptions or clarifications are listed here: None Documented By: Jerome Irwin feeling better no nausea no further diarrhea no f/c/s vitals noted, abd soft nd nt no masses a/p diarrhea/nausea/vomiting - likely food borne enteritis resolving vs viral GE -- improving profound leukocytosis - fortunately neutrophil predominant, peripheral smear OK. very likely leukemoid reaction - will need followed to normalcy, and if does not normalize or any atypia - then will have to have hematology consult ?night sweats - nonspecific, very subjective. will need outpt f/u -- ddx being very broad since he did have prior third world exposures. that said, unclear if it's anything more than simply feeling hot at night the last few nights prior to admission improving Continued [facility] stay due to: other Discharge planning: home
[2016-12-21 15:51] VITALS: BP 98/65; PULSE 74; TEMP 37; O2SAT 97
[2016-12-21 23:05] VITALS: BP 93/50; PULSE 66; TEMP 36.9; O2SAT 94
[2016-12-22] MEDS: SODIUM CHLOR 0.45% + 20MEQ KCL 1,000 ML IV SCH (05:10)
[2016-12-22 06:05] LABS: HEMATOCRIT 40.1 % (42-52); MEAN CELL VOLUME 90.3 fL (80-100); MEAN CORPUSCULAR HEMOGLOBIN 29.5 pg (25-34); MEAN CORPUSCULAR HGB CONC 32.7 g/dl (32-36); MEAN PLATELET VOLUME 9.8 fL (7.4-10.4); PLATELET COUNT 204 K/uL (130-400); RED BLOOD COUNT 4.44 M/uL (4.7-6.1); WHITE BLOOD COUNT 22.58 K/uL (4.8-10.8)
[2016-12-22 07:36] VITALS: BP 93/60; PULSE 53; TEMP 36.6; O2SAT 96
[2016-12-22] MEDS: PANTOprazole INJ 40 MG in SYRINGE 0 ML IV SCH (09:23)
--- NOTE | 2016-12-22 10:35 | Discharge Instructions ---
Discharge Instructions Admission Reason for Admission: Diarrhea;Leukocytosis Discharge Discharge Diagnosis / Problem: leukemoid reaction Discharge Goals Goal(s): Learn about illness, Diagnostic testing Activity Recommendations Activity Limitations: resume your previous activity Shower/Bathe: no limitations Driving or Machine Use: no limitations . Instructions / Follow-Up Instructions / Follow-Up You were admitted to the hospital primarily for the symptoms you were suffering from as well as further evaluation of your blood work. A blood test called a CBC was done when you were in the ED and it revealed that your white blood cell count was very high, in fact, greater than 35! We continued to trend this blood work and it improved throughout your stay to 22 today. It is still not back to a normal state which is EXTREMELY important you get your blood work done within a week to make sure it is back to normal. We did do something called a peripheral smear which allows us to better visualize your blood and what is going on and based on what was seen it was an inflammatory reaction. In the 1 % chance it is something else, we want you to recheck the blood work. Please follow up with [facility] as discussed within the week as well 1. Repeat CBC in less than one week 2. Follow up your results with [facility] Current Hospital Diet Patient's current hospital diet: Regular Diet Discharge Diet Recommended Diet: Regular Diet Pending Studies Studies pending at discharge: no Medical Emergencies . Who to Call and When: Medical Emergencies: If at any time you feel your situation is an emergency, please call 911 immediately. . Non-Emergent Contact Non-Emergency issues call your: Primary Care Provider Call Non-Emergent contact if: you have a fever, temperature is above 101.5, your pain is not controlled, your pain is worsening, your pain is unusual for you . . "Provider Documentation" section prepared by Eli Joshi. VTE Core Measure Inpt VTE Proph given/why not?: SCD's
--- NOTE | 2016-12-22 10:41 | Discharge Summary ---
Discharge Summary Admission Date: Dec 21, 2016 at 03:47 Discharge Date: Dec 22, 2016 Discharge Disposition: Home Principal Diagnosis: Leukemoid reaction (Eli Joshi MD) Medication Reconciliation Continued Medications: Ibuprofen (Advil) 200 Mg Tab 400 MG PO Q8 PRN for Pain, TAB Discharge Exam Feeling well with only a slight headache Denies abdominal discomfort and N&V States that he has not had any night sweats He states his appetite is good Diarrhea has continued to improve Review of Systems: Constitutional: No fever Eyes: No worsening of vision ENT: No hearing loss Respiratory: No cough, No dyspnea at rest, No dyspnea on exertion, No shortness of breath, No sputum, No wheezing Cardiovascular: No chest pain Abdomen: + diarrhea, No constipation, No nausea, No pain, No vomiting Musculoskeletal: No joint pain, No muscle pain Genitourinary - Male: No dysuria, No hematuria Neurologic: No balance problems, No memory loss, No numbness/tingling, No weakness Psychiatric: No depression symptoms Endocrine: No fatigue Integumentary: No rash Physical Exam: General Appearance: WD/WN, no apparent distress Eyes: normal inspection ENT: normal ENT inspection Neck: supple Respiratory/Chest: lungs clear, normal breath sounds, no respiratory distress, no accessory muscle use Cardiovascular: regular rate, rhythm, no murmur Abdomen / GI: normal bowel sounds, non tender, soft Extremities: no calf tenderness, no pedal edema Neurologic/Psychiatric: alert, normal mood/affect, oriented x 3 Skin: normal color, warm/dry, no rash Lymphatic: no adenopathy (Eli Joshi MD) Hospital Course This is a 21 yo m that presented to us with nausea and abdominal discomfort and a WBC > 30. He was thoroughly imaged without source of inflammation. His WBC is down trending and a peripheral smear was done to r/o parasitic infection vs leukemoid reaction or leukemia. Based on results most likely reactive. As the patient had improved symptoms we discussed d/c and he preferred to stay overnight and have WBC level checked in am prior to d/c. The morning of d/c the WBC was 22 and continued to trend downward. We reiterated the importance of follow up labs to make sure that that WBC will normalize on the off chance that it is something more insidious than an inflammatory reaction. Abdominal discomfort/ N&V most likely secondary Viral Gastroenteritis- - treated with IVF and Zofran, resolved on d/c Leukemoid Reaction -recheck CBC in less than a week and follow up with S - C Diff because diarrhea and such a high WBC count- was negative - blood culture negative to date DVT Prophylaxis received SCD FULL CODE Total Time Spent: Less than 30 minutes This includes examination of the patient, discharge planning, medication reconciliation, and communication with other providers. (Eli Joshi MD) Resident Physician Supervision Note: I interviewed and examined the patient. Discussed with Dr. Joshi and agree with findings and plan as documented in the note. Any exceptions or clarifications are listed here: None Documented By: Jerome Irwin feeling better, diarrhea resolved. no f/c/s. vitals noted, nad, breathing unlabored no accessory muscle use, ambulatory without difficulty. no pallor or icterus labs reviewed a/p marked leukocytosis - likely leukemoid reaction to food poisoning vs viral GE. symptomatically improved. WBC's improved but not normalized. certainly stable for dc home but d/w pt that WBC definitely needs tracked to normalization. peripheral smear was negative for atypia which is reassuring but f/u CBC next week then weekly until normal. d/w pt that if numbers aren't normal by about 2wks, would want hematology evaluation to be safe. questionable night sweats - d/w pt this should be followed to resolution as well - that it likely was very nonspecific and not of worry, but between leukocytosis and also separately background of the part of the world where he grew up leading to more "atypical exposures" - would want this followed to resolution (or worked up further if doesn't resolve) stable for home, otherwise as above Total Time Spent: Less than 30 minutes (Jerome Irwin, D.O.) Discharge Instructions Please refer to the electronic Patient Visit Report (Discharge Instructions) for additional information. (Eli Joshi MD) Additional Copies To [facility]
[2016-12-22 11:05] VITALS: BP 93/60; PULSE 53; TEMP 36.6; O2SAT 96
== END 2016-12-22 16:30 | disposition home or self-care (01) ==
LOC: ENRESERVTM → ENRESERVDT → C.EDB 20:33 → C.MSW 12-21 03:47
PROVIDERS: ADMIT Hospitalist; ATTEND Hospitalist
DX: D72.823 Leukemoid reaction (principal); R11.2 Nausea with vomiting, unspecified; R10.9 Unspecified abdominal pain; R19.7 Diarrhea, unspecified; Z91.013 Allergy to seafood; Z83.3 Family history of diabetes mellitus

== ENCOUNTER → 2017-02-16 | Outpatient (CLI) | payer OTHER ==
[~2017-02-16] MED LIST: GADAVIST IV PRN; IBUP-1050 PO
--- NOTE | 2017-02-20 14:28 | MAMMOGRAPHY REPORT ---
BREAST MRI OF BOTH BREASTS : 02/16/2017 CLINICAL HISTORY: Enlarging right breast mass. COMPARISON: No prior exams were available for comparison. Technique: The patient was placed prone in a dedicated breast imaging coil. Precontrast axial T1-we ighted, axial T2-weighted fat saturation, and axial T1-weighted fat saturation images were obtained. After the administration of 7 mL of Gadavist IV contrast, sequential T1-weighted fat saturation im ages were obtained. Subtraction images were obtained of the dynamic contrast enhanced sequences, an d 3-D reformations were performed. The [employer] software was used for kinetic analysis. Findings: A marker was placed at the site of the palpable mass on the right lateral breast. There is a hetero geneously enhancing mass within the lateral aspect of right pectoralis muscle, which measures 4.5 x 6.1 x 6.0 cm (series 501 image 61, series 6 image 106). The mass is isointense to muscle on T1-weig hted images and heterogeneously hyperintense to muscle on T2-weighted images. Increased vascularity is seen within the right breast and other soft tissues surrounding the mass. The mass is suspiciou s for a sarcoma or other malignancy. There is no evidence of involvement of the underlying rib. The left breast is negative, without suspicious enhancing masses or areas of abnormal enhancement. There is no evidence of axillary adenopathy. The remainder of the visualized soft tissues are unrem arkable. IMPRESSION: ACR BI-RADS CATEGORY 4: SUSPICIOUS Heterogeneously enhancing 6 cm mass within the right pectoralis muscle, which corresponds with the p alpable lump. The mass is suspicious for a sarcoma or other malignancy. Recommend biopsy/surgical excision for further evaluation. A phone call was made to the physician's office to confirm faxed results were received. Results patsy gracia discussed with Dr. Garay on 02/17/2017. Amy Mullins M.D. ah/:02/18/2017 10:53:11 Travel Guide: inspector experimental assembly, [facility] BI-RADS Code: ACR BI-RADS Category 4: Suspicious
== END | disposition home or self-care (01) ==
LOC: C.MRI 12:51
PROVIDERS: ATTEND Physician Assistant
DX: N63 Unspecified lump in breast (principal)